=== PATIENT | female | born 1955 | race Caucasian/White ===

== ENCOUNTER 2017-06-04 21:34 | Observation (INO) | payer MEDICARE ==
[~2017-06-04] VITALS: Ht 165.1 cm; Wt 91.4 kg
--- NOTE | ~2017-06-04 | HEMODYNAMI ---
PATIENT:MARITZA RANGEL MEDICAL RECORD: [id number] : 55 LOCATION:[facility] D.2118 ADMISSION DATE: 06/05/17 Generatedon:06/07/20178:47 Patient name: MARITZA RANGEL Patient #: [id number] SSN: : 1955 Date of study: 06/07/2017 Page: Of Hemodynamic Procedure Report Patient Data Patient Demographics Procedure consent was obtained First Name: MARITZA Gender: Female Last Name: JUAN CARLOS : 1955 [facility] Initial: J Age: 62 year(s) Patient #: [id number] Race: Unknown Additional ID: [id number] Contact details [address]: [address] [place] [address] rd State: [place] City: [place] Zip code: [address] Past Medical History Allergies Allergen Reaction Date Comments Reported Other allergy 06/07/2017 hydromorphone Morphine 06/07/2017 Admission Admission Data Admission Date: 06/05/2017 Admission Time: 0:54 Room #: D.2118 Lab Results Lab Result Date: 06/07/2017 Lab Result Time: 0:00 Biochemistry Name Units Result Min Max Creatinine mg/dl 0.9 --(-*--)-- 0.6 1.3 CBC Name Units Result Min Max Hemoglobin g/dl 12.5 *-(----)-- 13.5 17.5 Procedure Procedure Types Cath Procedure Diagnostic Procedure [facility] w/Coronaries Miscellaneous Procedures Moderate Sedation up to 30 minutes Procedure Description Procedure Date Procedure Date: 06/07/2017 Procedure Start Time: 8:23 Procedure End Time: 8:44 Procedure Staff Name Function Benson Nunn MD Performing Physician Delmi Mace RT Scrub Lorne Pelayo RN Nurse Nicholas Uribe RT Monitor Procedure Data Cath Procedure Fluoroscopy Diagnostic fluoroscopy Total fluoroscopy Time: 4.4 time: 4.4 min min Diagnostic fluoroscopy Total fluoroscopy dose: 535 dose: 535 mGy mGy Contrast Material Contrast Material Type Amount (ml) Isovue 300 57 Entry Location Entry Primary Successful Side Size Upsize Upsize Entry Closure Mejía ccessful Closure Location (Fr) 1 (Fr) 2 (Fr) Remarks Device Remarks Radial Right 6 Fr Mechanical artery Short Compression Estimated blood loss: 5 ml Diagnostic catheters Device Type Used For End Catheter Placement Diagnostic Terumo 5Fr LV Angiography [place] 110cm catheter Diagnostic Terumo 5Fr Left Coronary [place] 110cm catheter Angiography Diagnostic Infinity 5Fr Right Coronary AR MOD Catheter Angiography Procedure Complications No complications Procedure Medications Medication Administration Route Dosage Oxygen NC 2 l/min 0.9% NaCl I.V. 100 ml/hr Versed I.V. 1 mg Fentanyl I.V. 50 mcg Radial Cocktail added to field 1 syringe (Verapomil 2mg/Nitro 400mcg/Heparin 1500units) Hemodynamics Rest HGB: 12.5 (g/dl) Heart Rate: 57 (bpm) Pressure Samples Time Site Value (mmHg) Purpose Heart Use Rate(bpm) 8:28 LV 88/4,13 EDP 49 Gradients Valve Time Site Site Mean SEP/DFP Peak To Heart Use 1 2 (mmHg) (sec/min) Peak Rate (mmHg) (bpm) Aortic 8:29 LV AO 94 Snapshots Pre Cath Intra NCS Post Cath Vital Signs Time Heart Resp SPO2 etCO2 [id number] NIBP (mmHg) Rhythm Pain Sedation Rate (ipm) (%) (mmHg) (mmHg) Status Level (bpm) 8:10:47 57 15 93 0 0 126/79(101) NSR 0 (11) 10(A) , No pain 8:15:00 55 12 88 0 0 118/68(82) NSR 0 (11) 10(A) , No pain 8:19:12 53 12 93 0 0 106/71(83) NSR 0 (11) 10(A) , No pain 8:23:18 56 12 94 0 0 108/72(86) NSR 0 (11) 9(A) , No pain 8:27:30 63 12 93 0 0 106/59(82) NSR 0 (11) 9(A) , No pain 8:31:38 62 14 93 0 0 110/65(89) NSR 0 (11) 9(A) , No pain 8:35:52 59 13 94 0 0 103/57(82) NSR 0 (11) 10(A) , No pain 8:39:58 59 12 95 0 0 109/67(79) NSR 0 (11) 10(A) , No pain 8:44:08 58 12 0 0 100/66(77) NSR 0 (11) 10(A) , No pain Medications Time Medication Route Dose Verified Delivered Reason Notes Eff ectiveness by by 8:06:35 Oxygen NC 2 l/min Jesus Jesus Per Deloris ramirez RN RN 8:07:18 0.9% NaCl I.V. 100 Jesus Jesus Per ml/hr Deloris ramirez RN RN 8:17:45 Versed I.V. 1 mg Jesus Jesus for sedation Deloris Puentes RN RN 8:18:11 Fentanyl I.V. 50 mcg Jesus Jesus for sedation Deloris Puentes RN RN 8:29:19 Radial added 1 Jesus Benson for Cocktail to syringe Deloris Nunn MD vasodilation (Verapomil field RN 2mg/Nitro 400mcg/Heparin 1500units) Procedure Log Time Note 7:50:31 Lorne Pelayo RN sent for patient. Start room use. 7:50:32 Time tracking: Regular hours 7:50:36 Plan of Care:Hemodynamics will remain stable., Cardiac rhythm will remain stable., Comfort level will be maintained., Respiratory function will remain adequate., Patient/ family verbilizes understanding of procedure., Procedure tolerated without complication., Recovers from procedure without complications.. 7:59:11 Patient received from PCU to CCL 1 Alert and oriented. Tansferred to table in Supine position. 7:59:11 Warm blankets applied, and eddie hugger turned on for patient comfort. 7:59:12 Correct patient and procedure confirmed by team. 7:59:13 Signed procedure consent form obtained from patient. 7:59:14 ECG and BP/O2 sat monitors applied to patient. 7:59:15 Full Disclosure recording started 8:06:35 Oxygen 2 l/min NC was administered by Jesus Puentes RN; Per physician; 8:07:18 0.9% NaCl 100 ml/hr I.V. was administered by Jesus Puentes RN; Per physician; 8:09:42 Vital chart was started 8:09:46 Rhythm: sinus rhythm 8:10:43 H&P Date Dictated: 06/06/2017 Within 30 days and on chart., H&P Addendum completed by physician on day of procedure. (MUST COMPLETE FOR ALL OUTPATIENTS). 8:10:45 Pre-procedure instructions explained to patient. 8:10:46 Pre-op teaching completed and patient verbalized understanding. 8:10:49 Family in patients room. 8:10:51 Patient NPO since Midnight. 8:11:47 Patient allergic to Other allergyhydromorphone 8:11:52 Patient allergic to Morphine 8:11:55 Is the patient allergic to Iodine/contrast media? No. 8:11:58 Is patient on blood thinner?No 8:12:01 Patient diabetic? No. 8:12:04 Previous problem with sedation/anesthesia? No ? 8:12:06 Snore? Yes 8:12:07 Sleep apnea? Yes 8:12:08 Deviated septum? No 8:12:09 Opens mouth fully? Yes 8:12:10 Sticks out tongue? Yes 8:12:11 Airway obstruction? No ? 8:12:14 Dentures? No ? 8:12:18 Pre procedure: right dorsailis pedis pulse 2+ Normal; easily identifiable; not easily obliterated 8:12:19 Modified Crow's test Ulnar < 7 seconds 8:12:21 Patient pain scale 0/10 ?. 8:12:26 IV patent on arrival in right antecubital with 0.9% NaCl at [facility]. 8:12:51 Lab Result : Creatinine 0.9 mg/dl 8:12:51 Lab Result : Hemoglobin 12.5 g/dl 8:12:54 Lab results completed and on chart. 8:12:57 Right Radial & Right Groin area was prepped with chlora-prep and draped in sterile fashion 8:12:58 Alarms reviewed by R. N. 8:12:59 Sharps counted by scrub and verified by R.N. 8:13:04 Use device set Radial Dx 8:13:05 Acist Syringe opened to sterile field. 8:13:05 Medline Cath Pack opened to sterile field. 8:13:06 Bag Decanter opened to sterile field. 8:13:07 Terumo 6Fr Slender Glidesheath opened to sterile field. 8:13:08 St Lit 260cm J .035 wire opened to sterile field. 8:13:09 Acist Hand Control opened to sterile field. 8:13:09 Acist Manifold opened to sterile field. 8:13:10 Tegaderm 4 x 4 opened to sterile field. 8:13:10 MBrace Wrist Support opened to sterile field. 8:13:16 Cook 21G 4cm Radial Needle opened to sterile field. 8:14:38 Final Timeout: patient, procedure, and site verified with staff and physician. All members of the team are in agreement. 8:14:44 Right Radial & Right Groin site verified by team. 8:14:49 Physical assessment completed. ASA score P 2 - A patient with mild systemic disease as per Benson Nunn MD. 8:14:53 Sedation plan: IV Moderate Sedation Versed, Fentanyl 8:15:31 Baseline sample Acquired. 8:16:39 Zero performed for pressure channel P1 8:17:45 Versed 1 mg I.V. was administered by Jesus Puentes RN; for sedation; 8:18:11 Fentanyl 50 mcg I.V. was administered by Jesus Puentes RN; for sedation; 8:23:26 Procedure started. 8:23:32 Local anesthetic to right radial artery with Lidocaine 2% by Benson Nunn MD.INITIAL ACCESS ONLY 8:25:02 A 6 Fr Short sheath was inserted into the Right Radial artery 8:25:40 A Diagnostic Terumo 5Fr [place] 110cm catheter was advanced over the wire and used for LV Angiography. 8:27:38 Terumo ANGLE 260cm glide wire opened to sterile field. 8:29:02 260 Ang [place] wire advanced. 8:29:11 LV gram done using WATSON 8:29:14 Injector settings: Ml/sec: 5, Volume: 15, 8:29:15 LV hemodynamics recorded. 8:29:19 Radial Cocktail (Verapomil 2mg/Nitro 400mcg/Heparin 1500units) 1 syringe added to field was administered by Benson Nunn MD; for vasodilation; 8:29:42 EF : 60 % 8:29:57 A Diagnostic Terumo 5Fr [place] 110cm catheter was advanced over the wire and used for Left Coronary Angiography. 8:32:59 Catheter removed. 8:33:16 A Diagnostic Infinity 5Fr AR MOD Catheter was advanced over the wire and used for Right Coronary Angiography. 8:34:38 Catheter removed. 8:35:25 Terumo TR Band Standard opened to sterile field. 8:35:33 Sheath removed intact; hemostasis achieved with Mechanical Compression to the Right Radial artery. 8:35:41 Procedure ended.(Physican Out) 8:35:56 Fluoroscopy time 04.40 minutes. 8:35:59 Fluoroscopy dose: 535 mGy 8:35:59 Flurop Dose total: 535 8:36:02 Contrast amount:Isovue 300 57ml. 8:36:03 Sharps counted by scrub and verified by R.N. 8:36:06 TR band inflated with 12cc of air. 8:36:07 Insertion/operative site no bleeding no hematoma. 8:36:15 Post right radial artery:stable, clean and dry 8:36:18 Post Procedure Pulses reassessed and unchanged 8:36:26 Post-procedure physical assessment completed. ASA score P 2 - A patient with mild systemic disease as per Benson Nunn MD. 8:36:29 Post procedure rhythm: unchanged. 8:36:31 Estimated blood loss: 5 ml 8:36:32 Post procedure instruction explained to patient.Patient verbalizes understanding. 8:36:33 Patient needs reinforcement of post procedure teaching. 8:36:49 Procedure type changed to Cath procedure, Diagnostic procedure, LHC, LHC w/Coronaries, Miscellaneous Procedures, Moderate Sedation up to 30 minutes 8:36:54 Procedure Complication : No complications 8:36:56 See physician's report for complete and final results. 8:38:01 Procedure and supply charges have been captured, reviewed, submitted and are correct. 8:44:48 Vital chart was stopped 8:44:51 Report given to PCU. 8:44:54 Patient transfered to PCU with Bed. 8:44:56 Procedure ended. 8:44:56 Full Disclosure recording stopped 8:45:05 End room use (Document Last) Device Usage Item Name Manufacture Quantity Catalog Hospital Part Current Minimal Lot# / Number Charge Number Stock Stock Serial# Code Acist Acist 1 [id number] [id number] [id number] [id number] 20 Syringe [employer] Inc Medline Cardinal 1 [id number] 233427 28464 283021 5 Cath Pack Health Bag Microtek 1 2001S 199145 66055 734940 5 [employer] Terumo 6Fr Terumo 1 [id number] 667585 386160 [address] Lit St Lit 1 786941 482169 537133 772899 30 260cm J .035 wire Acist Hand Acist 1 98183 339996 683372 273288 5 Control Medical Systems Inc Acist Acist 1 62669 643354 224962 711284 5 Manifold Medical Systems Inc Tegaderm 4 3M 1 1626W 497804 425198 855785 5 x 4 MBrace Advanced 1 140-0250-00 998429 34906 693052 5 Wrist Vascular Support Dynamics Cook 21G Cook Medical 1 [id number] 573442 403318 755068 5 4cm Radial Needle Diagnostic Terumo 1 40-0381 627767 913108 374456 5 Terumo 5Fr [place] 110cm catheter Terumo Terumo 1 [id number] 066585 316823 439816 5 ANGLE 260cm glide wire Diagnostic Cardinal 1 [id number] 962911 232800 781000 15 Infinity Health 5Fr AR MOD Catheter Terumo TR Terumo 1 [id number] 971663 316857 599869 40 Band Standard Signature Audit [place] Stage Time Signature Unsigned Intra-Procedure 06/07/2017 Delmi 8:47:07 AM Counts RT(R) Signatures Monitor : Nicholas Uribe RT Signature : Date : Time : [id number] [place] [address]
[2017-06-04 22:25] LABS: BASOPHILS 0.4 % (0-2); EOSINOPHILS 2.1 % (0-7); HEMATOCRIT 40.2 % (36.0-48.0); HEMOGLOBIN 13.4 g/dL (12-16); IMMATURE GRANULOCYTES 0.3 % (0-5); LYMPHOCYTES 35.8 % (15-50); MCH 29.8 pg (26.0-34.0); MCHC 33.3 g/dL (31.0-37.0); MCV 89.5 fL (80.0-100.0); MEAN PLATELET VOLUME 9.7 fL (7.4-10.4); NEUTROPHILS 52.4 % (40-80); PLATELET COUNT 242 10x3/uL (130-400); RBC 4.49 10x6/uL (4.00-5.40); RDW 13.1 % (11.5-14.5)
[2017-06-04 22:41] LABS: ALBUMIN 3.9 g/dL (3.4-5.0); ALKALINE PHOSPHATASE 86 U/L (46-116); ALT (SGPT) 28 U/L (10-68); BILIRUBIN - TOTAL 0.52 mg/dL (0.2-1.3); CALC OSMOLALITY 279 mosm/kg (275-300); CALCIUM 8.9 mg/dL (8.5-10.1); CARBON DIOXIDE 31.5 mmol/L (21.0-32.0); CHLORIDE - SERUM 104 mmol/L (98-107); GLUCOSE 90 mg/dL (74-106); POTASSIUM - SERUM 4.4 mmol/L (3.5-5.1); PROTEIN - SERUM 7.6 g/dL (6.4-8.2); SODIUM 139 mmol/L (136-145); UREA NITROGEN 19 mg/dL (7-18); eGFR NON AFRICAN AMERICAN 59 mL/min (90-120)
[2017-06-04 22:53] LABS: CKMB 2.3 U/L (0.0-3.6); CREATINE KINASE 227 UL (21-215)
[2017-06-04 22:54] LABS: TROPONIN-I < 0.017 ng/mL (0.000-0.060)
--- NOTE | 2017-06-05 02:15 | NUR ---
PT ARRIVES VIA WC TO FLOOR FROM ER. TELE PLACED, NSR ON MONITOR, HR 70'S. VSS AFEBRILE. MEDICATIONS RECONCILED. ADMISSION ASSESSMENT AND HISTORY COMPLETED. DENIES ANY C/O PAIN ON ARRIVAL. UNIT ROUTINES AND PROTOCOLS DISCUSSED. VERBALIZES UNDERSTANDING. CALL LIGHT PLACED WITHIN REACH. WILL CONT TO MONITOR.
[2017-06-05] MEDS ORDERED: ZANAFLEX4 MG PO (02:41)
[2017-06-05] MEDS ORDERED: TRAZODONE HCL150 MG PO (02:41)
[2017-06-05] MEDS ORDERED: PROZAC40 MG PO (02:42)
[2017-06-05] MEDS ORDERED: BUPROPION HCL100 MG PO (02:43)
[2017-06-05] MEDS ORDERED: SYNTHROID25 MCG PO (02:43)
[2017-06-05] MEDS ORDERED: LIPITOR40 MG PO (02:43)
[2017-06-05] MEDS ORDERED: NEXIUM40 MG PO (02:44)
[2017-06-05] MEDS ORDERED: ULTRAM50 MG PO (02:44)
[2017-06-05] MEDS ORDERED: COLACE100 MG PO (02:45)
[2017-06-05] MEDS ORDERED: IBUPROFEN600 MG PO (02:45)
[2017-06-05] MEDS ORDERED: NAPROXEN375 M1 PO (02:46)
[2017-06-05 03:03] VITALS: Ht 165.1 cm; Wt 91.4 kg
[2017-06-05 04:00] VITALS: BP 129/75
--- NOTE | 2017-06-05 05:45 | NUR ---
PT C/O PAIN AND WANTING TO "SLEEP". PT IS ALLERGIC TO MORPHINE, WHICH WAS ORDERED IN THE ER. MORPHINE DISCONTINUED, SPOKE WITH DR GOSS AND ORDER OBTAINED FOR TRAMADOL 50 MG PO TID PRN. PT GIVEN TRAMADOL AT THIS TIME. WILL MONITOR.
[2017-06-05 08:22] VITALS: BP 101/50
[2017-06-05 08:45] LABS: CKMB 1.5 U/L (0.0-3.6); CREATINE KINASE 194 UL (21-215); TROPONIN-I < 0.017 ng/mL (0.000-0.060)
[2017-06-05 11:36] LABS: CKMB 1.5 U/L (0.0-3.6); CREATINE KINASE 194 UL (21-215)
[2017-06-05 11:38] LABS: TROPONIN-I < 0.017 ng/mL (0.000-0.060)
[2017-06-05 12:09] VITALS: BP 109/62
--- NOTE | 2017-06-05 12:29 | NUR ---
LEAVING FOR MRI BY W/C.
[2017-06-05 16:17] VITALS: BP 119/73
[2017-06-05 17:42] LABS: CKMB 1.3 U/L (0.0-3.6); CREATINE KINASE 183 UL (21-215); TROPONIN-I < 0.017 ng/mL (0.000-0.060)
[2017-06-05 19:00] VITALS: BP 111/63
--- NOTE | 2017-06-05 19:32 | NUR ---
PT C/O PAIN, REPORTS A HEADACHE "THAT WILL NOT GO AWAY, I NEED SLEEP". PT REQUESTS A "PAIN SHOT". DILAUDID 0.5 MG IV GIVEN AT THIS TIME WITH ZOFRAN 4 MG IV. PER PT REQUEST HS MEDS ALSO GIVEN @ THIS TIME. WILL MONITOR.
--- NOTE | 2017-06-05 20:15 | NUR ---
PT STATES HAVING CHEST PAIN, "JUST LIKE WHEN THEY GAVE ME MORPHINE". VSS, SATS 97% ON ROOM AIR, LUNGS CTA. P-T IS HYPERVENTILATING AND MOANING LOUDLY IN ROOM. BECOMES CLAMMY AND DIAPHORETIC. ATTEMPTED TO GIVE NITROGLYCERIN - PT REFUSES STATES "I JUST GOT RID OF THE HEADACHE, I'M NOT TAKING THE NITROGLYCERIN". ASSESSED TELEMETRY, NO CHANGES NOTED. UPON RE-ENTERING ROOM PT STATES ALL THE PAIN IS RESOLVING AND PT CALMER, BREATHING DEEPER AND SLOWER. PT NOW REPORTS HAVING HER "BODY JERKING" WHICH ALSO RESOLVED WITHIN MOMENTS OF REPORTING THE ERRATIC BODY MOVEMENTS. CALL LIGHT PLACED WITHIN REACH. WILL CONT TO MONITOR.
[2017-06-06] VITALS: BP 90/52
[2017-06-06 04:00] VITALS: BP 104/65
[2017-06-06 07:15] LABS: BASOPHILS 0.2 % (0-2); EOSINOPHILS 3.5 % (0-7); HEMATOCRIT 38.5 % (36.0-48.0); HEMOGLOBIN 12.6 g/dL (12-16); IMMATURE GRANULOCYTES 0.2 % (0-5); LYMPHOCYTES 36.7 % (15-50); MCH 29.7 pg (26.0-34.0); MCHC 32.7 g/dL (31.0-37.0); MCV 90.8 fL (80.0-100.0); MEAN PLATELET VOLUME 9.8 fL (7.4-10.4); NEUTROPHILS 52.4 % (40-80); PLATELET COUNT 228 10x3/uL (130-400); RBC 4.24 10x6/uL (4.00-5.40); RDW 13.4 % (11.5-14.5)
[2017-06-06 07:16] LABS: WBC 5.2 10x3/uL (4.8-10.8)
[2017-06-06 07:25] LABS: CALCIUM 8.1 mg/dL (8.5-10.1); CARBON DIOXIDE 29.9 mmol/L (21.0-32.0); CREATININE - SERUM 0.9 mg/dL (0.6-1.3); POTASSIUM - SERUM 3.9 mmol/L (3.5-5.1)
[2017-06-06 09:21] VITALS: BP 113/61
--- NOTE | 2017-06-06 09:52 | NUR ---
RESTS IN BED WITH CALL LIGHT IN REACH. TELEMETRY SR. WILL CONT. PLAN OF CARE.
[2017-06-06 11:49] VITALS: BP 114/65
--- NOTE | 2017-06-06 12:00 | NUR ---
CONSENTS SIGNED FOR [facility].
[2017-06-06 15:52] VITALS: BP 111/80
[2017-06-06 20:00] VITALS: BP 124/72
--- NOTE | 2017-06-06 20:00 | NUR ---
PT RESTING IN BED. RECEIVED FIORCET EARLIER AND REPORTS HEADACHE MUCH BETTER NOW. SR PER TELEMETRY. NONLABORED RESPIRATIONS ON ROOM AIR. LFA WITH D5NS @ 100ML/HR. SEE ASSESSMENT. CPOC.
[2017-06-07 01:15] VITALS: BP 118/70
[2017-06-07 04:30] VITALS: BP 133/69
[2017-06-07 04:49] LABS: BASOPHILS 0.2 % (0-2); EOSINOPHILS 5.5 % (0-7); HEMATOCRIT 38.2 % (36.0-48.0); HEMOGLOBIN 12.5 g/dL (12-16); LYMPHOCYTES 41.4 % (15-50); MCH 29.6 pg (26.0-34.0); MCHC 32.7 g/dL (31.0-37.0); MCV 90.5 fL (80.0-100.0); MEAN PLATELET VOLUME 9.9 fL (7.4-10.4); NEUTROPHILS 45.9 % (40-80); PLATELET COUNT 235 10x3/uL (130-400); RBC 4.22 10x6/uL (4.00-5.40); RDW 13.2 % (11.5-14.5); WBC 5.3 10x3/uL (4.8-10.8)
[2017-06-07 05:18] LABS: ANION GAP 8.7 mmol/L (8-16); CALCIUM 8.1 mg/dL (8.5-10.1); CARBON DIOXIDE 29.8 mmol/L (21.0-32.0); CHOL - HDL RATIO 3.5 ratio (2.3-4.1); CREATININE - SERUM 0.9 mg/dL (0.6-1.3); LDL-HDL RATIO 1.9 ratio (1.5-3.5); POTASSIUM - SERUM 3.5 mmol/L (3.5-5.1)
--- NOTE | 2017-06-07 08:00 | NUR ---
PRE-OPS GIVEN. TO TEST PREPARER BY BED.
--- NOTE | 2017-06-07 09:01 | NUR ---
BACK FROM [employer]. RIGHT WRIST STABLE. TR BAND INTACT. WILL MONITOR.
[2017-06-07 10:34] VITALS: BP 140/71
--- NOTE | 2017-06-07 11:53 | NUR ---
TR BAND DCD WITHOUT BLEEDING OR HEMATOMA NOTED. WILL MONITOR.
[2017-06-07 12:00] VITALS: BP 110/68
--- NOTE | 2017-06-07 15:08 | NUR ---
DISCHARGE INSTRUCTIONS REVIEWED WITH PT. VERBAL AND WRITTEN ACKNOWLEDGEMENT RETURNED
--- NOTE | 2017-06-07 15:12 | NUR ---
IV DC'D WITH TIP INTACT. COVERED WITH 2X2 GAUZE AND TAPE. TOLERATED WELL
--- NOTE | 2017-06-07 15:41 | NUR ---
IV AND TELEMETRY DCD. DC PLANS GIVEN. UNDERSTANDING VOICED. ESCORTED TO CAR BY W/C.
== END 2017-06-07 15:42 | disposition home or self-care (01) ==
LOC: D.ER 21:34 → D.M2 06-05 00:54 → OBSVTIME 06-05 00:54 → D.M2 06-05 00:54
PROVIDERS: Emergency Medicine; ADMIT Emergency Medicine
DX: R07.89 Other chest pain (principal); R51 Headache; E78.5 Hyperlipidemia, unspecified; E03.9 Hypothyroidism, unspecified

== ENCOUNTER → 2018-07-08 07:05 | Outpatient (CLI) | payer MEDICARE ==
[2017-06-05 03:03] VITALS: BMI 33.5
[~2018-07-08 07:05] MED LIST: BUPROPION HCL100 MG PO; COLACE100 MG PO; IBUPROFEN600 MG PO; LIPITOR40 MG PO; NAPROXEN375 M1 PO; NEXIUM40 MG PO; PROZAC40 MG PO; SYNTHROID25 MCG PO; TRAZODONE HCL150 MG PO; ULTRAM50 MG PO; ZANAFLEX4 MG PO
== END | disposition home or self-care (01) ==
LOC: D.US 07:00
DX: R10.9 Unspecified abdominal pain (principal)